=== PATIENT | male | born 1955 | race Caucasian/White ===

== ENCOUNTER 2017-02-06 08:14 | Day surgery (SDC) | payer OTHER ==
[~2017-02-06] VITALS: Ht 185.4 cm; Wt 145.0 kg
[~2017-02-06 08:14] MED LIST: AMARYL4 MG PO; AMIODARONE HCL200 MG PO; ASPIRIN325 MG PO; ELIQUIS5 MG PO; HYDROCHLOROTHIA25 MG PO; LISINOPRIL40 MG PO; METFORMIN HCL1000 MG PO; METOPROLOL TAR100 MG PO; PRAVASTATIN SOD20 MG PO
[2017-02-06 08:51] LABS: HEMATOCRIT 46.7 % (38.0-50.0); MCH 27.4 PG (29.0-34.0); MCV 83.1 FL (86-99); MEAN PLAT.VOLUME 10.3 uM^3 (9.0-12.4); PLATELET COUNT 275 K/uL (156-360); RBC DIS.WIDTH-CV 12.4 % (11.8-14.6); RBC DIS.WIDTH-SD 37.3 % (39-53); RED BLOOD COUNT 5.62 M/uL (4.00-5.50); WHITE BLOOD COUNT 10.3 K/uL (4.1-10.2)
[2017-02-06 09:00] LABS: POINT-OF-CARE METER ID UU13113696
== END 2017-02-06 16:50 | disposition home or self-care (01) ==
LOC: CATH 08:14
PROVIDERS: Internal Medicine Cardiovascular Disease
PROC: 4A023N7 Measurement of Cardiac Sampling and Pressure, Left Heart, Percutaneous Approach (ICD-10-PCS; principal; 2017-02-06)
PROC: B2111ZZ Fluoroscopy of Multiple Coronary Arteries using Low Osmolar Contrast (ICD-10-PCS; principal; 2017-02-06)
PROC: B2151ZZ Fluoroscopy of Left Heart using Low Osmolar Contrast (ICD-10-PCS; principal; 2017-02-06)
DX: R94.39 Abnormal result of other cardiovascular function study (principal); R06.02 Shortness of breath; R53.83 Other fatigue; E11.9 Type 2 diabetes mellitus without complications; I10 Essential (primary) hypertension; E78.5 Hyperlipidemia, unspecified; I48.0 Paroxysmal atrial fibrillation; E66.9 Obesity, unspecified; I27.2 Other secondary pulmonary hypertension; Z79.84 Long term (current) use of oral hypoglycemic drugs
CPT/HCPCS: 82948; 85027; 93005; C1769; C1887; J1644; J2250; J3010

== ENCOUNTER 2017-07-03 11:21 | Day surgery (SDC) | payer BC ==
[~2017-07-03] VITALS: Ht 189.2 cm; Wt 159.0 kg
== END 2017-07-03 14:30 | disposition home or self-care (01) ==
LOC: CATH 11:21
PROVIDERS: Internal Medicine Cardiovascular Disease
PROC: 5A2204Z Restoration of Cardiac Rhythm, Single (ICD-10-PCS; principal; 2017-07-03)
PROC: B245ZZ4 Ultrasonography of Left Heart, Transesophageal (ICD-10-PCS; principal; 2017-07-03)
DX: I48.91 Unspecified atrial fibrillation (principal); I10 Essential (primary) hypertension; E78.5 Hyperlipidemia, unspecified; E11.9 Type 2 diabetes mellitus without complications; E66.9 Obesity, unspecified; I25.10 Atherosclerotic heart disease of native coronary artery without angina pectoris; Z79.01 Long term (current) use of anticoagulants; Z79.84 Long term (current) use of oral hypoglycemic drugs
CPT/HCPCS: 82948; 93312